=== PATIENT | male | born 1975 | race Caucasian/White ===

== ENCOUNTER 2021-12-02 14:18 | Emergency (ER) | payer OTHER, SELFPAY ==
--- NOTE | ~2021-12-02 | XR_ITS ---
EXAMINATION: XR SHOULDER, LEFT CLINICAL INFORMATION: Fall. Pain. COMPARISON: None TECHNIQUE: Four views of the left shoulder. FINDINGS: The bones and soft tissues are normal. No fracture. Glenohumeral and acromioclavicular alignment is anatomic with normal joint space. No abnormal soft tissue calcifications. XR/XR shoulder LT min 2V IMPRESSION: Normal left shoulder.
--- NOTE | ~2021-12-02 | XR_ITS ---
EXAMINATION: XR ELBOW, LEFT CLINICAL INFORMATION: Fall. Pain. COMPARISON: None TECHNIQUE: Three views of the left elbow. FINDINGS: The bones and soft tissues are normal. No fracture or joint effusion. Alignment is anatomic. Joint spaces are maintained. XR/XR elbow LT min 3V IMPRESSION: Normal left elbow.
[2021-12-02 14:36] VITALS: BP 115/72; PULSE 65; RESP 18; TEMP 36.6; O2SAT 100; BMI 32.3
--- NOTE | 2021-12-02 15:41 | ED.FALL ---
HPI - Fall General Chief Complaint: Fall Stated Complaint: fell at work Time Seen by Provider: 12/02/21 14:57 Source: patient Mode of arrival: ambulatory Limitations: no limitations History of Present Illness HPI Narrative: 46 y/o male presents to the ER for evalution of left elbow pain and buttcock pain after he slipped and fell on ice today when he was getting out of his truck at work this afternoon. He reports slipping and falling backward, landing on his left elbow and then his buttock. He did not hit his head or lose consciousness. He reports he has normal range of motion of the elbow but just wants to make sure that nothing is wrong. He is currently in physical therapy in seeing orthopedics for left ?frozen shoulder ? from an untreated injury at work back in May. He reports when he fell he also had some left shoulder pain. His range of motion remains the same as it was prior to the fall. He has pain with abduction. MD complaint: fall Onset (ago): hour(s) Fall from: standing Fall witnessed: no Place fall occurred: street Loss of consciousness: none Prolonged down time: no Symptoms prior to fall: none Context: tripped/slipped Location of injury: buttocks Location of injury - extremities: left: shoulder and elbow Severity: mild Severity scale (1-10): 4 Quality: aching Associated symptoms (after fall): denies Related Data Allergies Allergy/AdvReac Type Severity Reaction Status Date / Time No Known Allergies Allergy Unverified 07/29/20 16:18 [No Known Allergies*] Review of Systems Review of Systems: Constitutional: No Fever, No Chills Cardiovascular: No Chest Pain, No SOB Gastrointestinal: No Nausea, No Vomiting, No abdominal Pain Genitourinary: No Hematuria Musculoskeletal: + joint pain, + Myalgias Skin: No Skin Lesions, No rash Neuro: No Weakness, No Numbness, No Dizziness, No Headache Heme/Lymph: No Bruising PMFSH Past Medical History Medical History (Updated 12/02/21 @ 16:11 by DANIELLE Tate) Anxiety HLD (hyperlipidemia) HTN (hypertension) Surgical History (Updated 12/02/21 @ 14:38 by Lesia Jay) No pertinent past surgical history Social History Social History Advance Directives: No Advance Directives Information Provided: No Physical Exam Vital Signs: Vital Signs: Last Vital Signs Temp 97.8 F 01/21/22 14:36 Pulse 65 12/02/21 14:36 Resp 18 12/02/21 14:36 BP 115/72 12/02/21 14:36 Pulse Ox 100 12/02/21 14:36 BMI result Body Mass Index 32.3 Appearance: Alert. Oriented X3. No acute distress. HEENT: normal inspection CVS: Normal heart rate and rhythm. Pulses normal. Respiratory: No respiratory distress. Skin: Skin warm and dry. Normal skin color. Normal skin turgor. No rashes. Extremities: Normal inspection, active and passive range of motion of the left shoulder. No point tenderness. Neurovascularly intact distally. Left shoulder normal inspection, nontender. Active and passive range of motion is limited, pain at 90 degrees of abduction. Negative empty can test. No scapular tenderness. Neuro: Oriented X 3. No motor deficit. No sensory deficit. Course Course Course Narrative: 46-year-old male presenting to the ER with left elbow pain, left shoulder pain and buttock pain after a slip and fall on ice earlier today. He has full range of motion of the elbow, chronic limited range of motion of the left shoulder with no obvious deformities on exam. He has no ecchymosis or point tenderness of the lumbar spine or sacrum. Doubt acute fracture. Will get x-rays of the elbow and shoulder to assure no acute fracture. Reevaluation(s) Reevaluation #1: X-rays are negative. Will discharge with supportive care and plan to follow-up with [facility]. Patient will also follow-up with his orthopedist and his physical therapist early next week. He will remain on light duty at work. Critical Care Time Critical Care Time Critical Care Time: No Discharge Plan Discharge Clinical Impression: Contusion Qualifiers: Encounter type: initial encounter Contusion area: elbow Laterality: left Qualified Code(s): S50.02XA - Contusion of left elbow, initial encounter Fall from slipping on ice Qualifiers: Encounter type: initial encounter Qualified Code(s): W00.9XXA - Unspecified fall due to ice and snow, initial encounter Patient Disposition: Home, Self-Care Instructions: Bone Bruise (ED) Additional Instructions: Your x-rays today were normal. Recommend rest, ice, taking Motrin and/or Tylenol as needed for pain. Recommend following up with [facility] next week. Referrals: [facility] [Provider Group] - 3 days (Follow-up fall at work.)
== END 2021-12-02 16:19 | disposition home or self-care (01) ==
PROVIDERS: Emergency Provider Emergency Medicine Emergency Medical Services; PCP Family Medicine
DX: S50.02XA Contusion of left elbow, initial encounter (principal); W00.0XXA Fall on same level due to ice and snow, initial encounter; Y93.89 Activity, other specified; Y92.481 Parking lot as the place of occurrence of the external cause; Y99.0 Civilian activity done for income or pay
CPT/HCPCS: 73030; 73080; 99283

== ENCOUNTER → 2021-12-06 10:27 | Outpatient (BNVA) | payer OTHER, SELFPAY | PROVIDERS: PCP Family Medicine; Visit Provider Physician Assistant Medical | DX: S39.012A Strain of muscle, fascia and tendon of lower back, initial encounter (principal); S29.012A Strain of muscle and tendon of back wall of thorax, initial encounter; S46.812A Strain of other muscles, fascia and tendons at shoulder and upper arm level, left arm, initial encounter; S59.902A Unspecified injury of left elbow, initial encounter; W00.0XXA Fall on same level due to ice and snow, initial encounter; M75.02 Adhesive capsulitis of left shoulder | CPT/HCPCS: 99203 ==

== ENCOUNTER → 2021-12-20 11:03 | Outpatient (BNVA) | payer OTHER, SELFPAY | PROVIDERS: PCP Family Medicine; Visit Provider Physician Assistant Medical | DX: S39.012D Strain of muscle, fascia and tendon of lower back, subsequent encounter (principal); S29.012D Strain of muscle and tendon of back wall of thorax, subsequent encounter; W00.0XXD Fall on same level due to ice and snow, subsequent encounter | CPT/HCPCS: 99213 ==

== ENCOUNTER → 2023-06-13 15:05 | Outpatient (BNVA) | payer OTHER, SELFPAY | PROVIDERS: PCP Family Medicine; Visit Provider Physician Assistant Medical | DX: S00.93XA Contusion of unspecified part of head, initial encounter (principal); W22.09XA Striking against other stationary object, initial encounter | CPT/HCPCS: 99202 ==